=== PATIENT | male | born 1980 | race Caucasian/White ===

== ENCOUNTER 2020-10-07 19:53 | Emergency (ER) | payer OTHER ==
[2020-10-07] MEDS ORDERED: Lidocaine 1% (PF) 30 ML VIAL ONE (20:30)
[2020-10-07] MEDS ORDERED: HYDROcodone/Acetaminophen 5/325 mg Tablet ONE (20:40)
[2020-10-07] MEDS ORDERED: Bacitracin 1 PK ONE (20:43)
== END 2020-10-07 20:52 | disposition home or self-care (01) ==
LOC: CSHERS 19:53
DX: L02.415 Cutaneous abscess of right lower limb (principal); F17.210 Nicotine dependence, cigarettes, uncomplicated
CPT/HCPCS: 10060; J2001